=== PATIENT | female | born 1970 | race Caucasian/White ===

== ENCOUNTER 2018-05-25 11:30 | Emergency (ER) | payer MEDICAID ==
--- NOTE | 2018-05-25 13:20 | ED Physician Documentation ---
PD HPI HEENT - Stated complaint Stated Complaint: LT EAR PRESSURE/PX - Chief complaint Chief Complaint: Heent - History obtained from History obtained from: Patient - History of Present Illness Timing - onset: How many days ago (10) Timing - duration: Days (10) Timing - details: Gradual onset, Still present, Waxing and waning Location: Left ear Improves: Medication Associated symptoms: Congestion, Cough Similar symptoms before: Diagnosis (OE) Recently seen: Emergency Dept - Additional information Additional information: 47-year-old female has had some pain in her left ear and a feeling of fullness about 10 days ago when she was seen in an emergency department in [place] where they placed her on some Floxin. She developed some problem with her hearing and a feeling of fullness in her ear and attempted to irrigate her ear yesterday with some hydrogen peroxide and when she tried to get out with a Q- tip she lost her hearing in that ear. 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) HEENT: Tonsil/Adenoidectomy Derm: Skin cancer surgery - Present Medications Home Medications: Ambulatory Orders Medication Instructions Recorded Confirmed [place] 300 mg 05/25/18 Propranolol [Inderal] 20 mg 05/25/18 traZODone [Desyrel] 50 mg 05/25/18 - Allergies Allergies/Adverse Reactions: Allergies Allergy/AdvReac Type Severity Reaction Status Date / Time will Allergy Anaphylaxis Verified 05/25/18 12:08 - Social History Does the pt smoke?: No Smoking Status: Never smoker Does the pt drink ETOH?: Yes Does the pt have substance abuse?: No - Immunizations Immunizations are current?: No Immunizations: TDAP >10years/unknown PD ED PE NORMAL - Vitals Vital signs reviewed: Yes (normal ) - General General: Alert and oriented X 3, No acute distress, Well developed/nourished - HEENT HEENT: Atraumatic, PERRL, EOMI, Moist mucous membranes, Pharynx benign, Other ( There is cerumen occluding the left canal. It appears bleached The right ear is clean. There is no pain to pull on the tragus or push on the pinna. ) - Neck Neck: Supple, no meningeal sign, No bony TTP - Respiratory Respiratory: No respiratory distress - Derm Derm: Normal color, Warm and dry, No rash - Extremities Extremities: No deformity, No edema - Neuro Neuro: No motor deficit, No sensory deficit Eye Opening: Spontaneous Motor: Obeys Commands Verbal: Oriented GCS Score: 15 - Psych Psych: Normal mood, Normal affect Results - Vitals Vitals: Vital Signs - 24 hr 05/25/18 11:41 Temperature 36.3 C L Heart Rate 73 Respiratory 16 Rate Blood Pressure 132/79 H O2 Saturation 99 Oxygen O2 Source Room air Procedures - General procedure General procedure: Cerumen impaction removal: With use of hydrogen peroxide the ear is instilled and allowed to percolate for 30 minutes. Following this the patient is irrigated vigorously with hydrogen peroxide with release of large portions of bleach to cerumen. The patient does get some dizziness and some nausea associated with this which is transient she recovers well and has improved hearing. PD MEDICAL DECISION MAKING - ED course Complexity details: considered differential, d/w patient ED course: 47-year-old female with cerumen impaction in the left ear as her ear irrigated with hydrogen peroxide with resolution of her symptoms. - Sepsis Event Vital Signs: Vital Signs - 24 hr 05/25/18 11:41 Temperature 36.3 C L Heart Rate 73 Respiratory 16 Rate Blood Pressure 132/79 H O2 Saturation 99 Oxygen O2 Source Room air Departure - Departure Disposition: 01 Home, Self Care Clinical Impression: Impacted cerumen of left ear Condition: Stable Instructions: ED Wax Ear Home Removal Follow-Up: [facility] [Provider Group]
[2018-05-25 13:34] VITALS: BP 117/81
== END 2018-05-25 13:32 | disposition home or self-care (01) ==
LOC: ED 11:30
DX: H61.22 Impacted cerumen, left ear (principal)
CPT/HCPCS: 69209; 99282; 99283

== ENCOUNTER 2018-05-26 17:46 | Emergency (ER) | payer MEDICAID ==
[2018-05-26] MEDS ORDERED: HYDROmorphone 2 MG/ML VIAL IVP STA (18:02)
[2018-05-26] MEDS ORDERED: ONDANSETRON 4 MG/2 ML VIAL IVP STA (18:02)
[2018-05-26] MEDS ORDERED: SODIUM CHLORIDE 0.9% 1,000 ML IV ONE (18:02)
--- NOTE | 2018-05-26 18:05 | ED Physician Documentation ---
History of Present Illness - Stated complaint Stated Complaint: HEADACHE/VOMIT - Chief complaint Chief Complaint: General - History obtained from History obtained from: Patient - History of Present Illness Timing: Today (She has a history of migraines at a young age but not severe. She developed left-sided neck pain which was severe a few hours ago which was followed by a severe headache and vomiting And light sensitivity.) Review of Systems Ten Systems: 10 systems reviewed and negative Constitutional: denies: Fever, Chills Nose: denies: Rhinorrhea / runny nose, Congestion Throat: denies: Sore throat GI: reports: Nausea, Vomiting. 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) HEENT: Tonsil/Adenoidectomy Derm: Skin cancer surgery - Present Medications Home Medications: Ambulatory Orders Medication Instructions Recorded Confirmed [place] 300 mg PO DAILY 05/25/18 05/26/18 Propranolol [Inderal] 20 mg PO DAILY 05/25/18 05/26/18 traZODone [Desyrel] 50 mg PO DAILY 05/25/18 05/26/18 SUMAtriptan [Imitrex] 25 mg PO BID PRN #10 tablet 05/26/18 - Allergies Allergies/Adverse Reactions: Allergies Allergy/AdvReac Type Severity Reaction Status Date / Time will Allergy Anaphylaxis Verified 05/26/18 17:56 - Social History Does the pt smoke?: No Smoking Status: Never smoker Does the pt drink ETOH?: Yes Does the pt have substance abuse?: No - Family History Family history: reports: Non contributory - Immunizations Immunizations are current?: No Immunizations: TDAP >10years/unknown PD ED PE NORMAL - Vitals Vital signs reviewed: Yes - General General: Alert and oriented X 3, Other (She is retching and appears profoundly uncomfortable with light sensitivity and sound sensitivity.) - HEENT HEENT: PERRL, EOMI - Neck Neck: Other (She has difficulty with rotation of the neck more so than flexion and extension.) - Cardiac Cardiac: RRR, No murmur - Respiratory Respiratory: No respiratory distress, Clear bilaterally - Abdomen Abdomen: Soft, Non tender - Derm Derm: Normal color, Warm and dry - Extremities Extremities: No deformity, No tenderness to palpate, No edema, No calf tenderness / cord - Neuro Neuro: Alert and oriented X 3 Eye Opening: Spontaneous Motor: Obeys Commands Verbal: Oriented GCS Score: 15 - Psych Psych: Normal mood, Normal affect Results - Vitals Vitals: Vital Signs - 24 hr 05/26/18 05/26/18 05/26/18 17:52 19:15 20:15 Temperature 36.8 C Heart Rate 63 54 L 70 Respiratory 16 18 16 Rate Blood Pressure 132/108 H 158/88 H 129/70 O2 Saturation 99 97 99 Oxygen O2 Source Room air - Labs Labs: Laboratory Tests 05/26/18 05/26/18 05/26/18 18:05 18:05 18:05 WBC 10.3 RBC 4.63 Hgb 11.3 L Hct 35.9 L MCV 77.5 L MCH 24.4 L MCHC 31.5 L RDW 18.7 H Plt Count 317 MPV 8.5 Neut # (Auto) 6.1 Lymph # (Auto) 3.3 [place] # (Auto) 0.5 Eos # (Auto) 0.3 Baso # (Auto) 0.1 Absolute Nucleated RBC 0.00 Nucleated RBC % 0.0 PT 10.9 INR 1.0 Sodium 136 Potassium 3.6 Chloride 104 Carbon Dioxide 23 Anion Gap 9.0 BUN 9 Creatinine 1.2 H Estimated GFR (MDRD) 48 L Glucose 116 H Calcium 9.5 Total Bilirubin 0.5 AST 28 ALT 21 Alkaline Phosphatase 73 Total Protein 8.0 Albumin 4.6 Globulin 3.4 Albumin/Globulin Ratio 1.4 Lipase 27 Last Dose Date Last Dose Time [place] 05/26/18 18:45 WBC RBC Hgb Hct MCV MCH MCHC RDW Plt Count MPV Neut # (Auto) Lymph # (Auto) [place] # (Auto) Eos # (Auto) Baso # (Auto) Absolute Nucleated RBC Nucleated RBC % PT INR Sodium Potassium Chloride Carbon Dioxide Anion Gap BUN Creatinine Estimated GFR (MDRD) Glucose Calcium Total Bilirubin AST ALT Alkaline Phosphatase Total Protein Albumin Globulin Albumin/Globulin Ratio Lipase Last Dose Date UNKNOWN Last Dose Time UNKNOWN [place] 0.52 - [place] (name of study) CTA Head Neck Radiology: EMP read contemporaneously (Degenerative changes in the neck without vascular issues or subarachnoid hemorrhage.) PD MEDICAL DECISION MAKING - ED course ED course: 47-year-old woman with history of migraines presents with a much worse than usual headache that really started in the neck and the pattern was concerning for vertebral dissection and therefore advanced CT imaging was obtained which was negative for same. She improved initially with Dilaudid and Zofran but then the pain recurred and she was treated with Reglan and Benadryl IV. After that she was pain-free and she was given a shot of Decadron to prevent rebound headaches. - Sepsis Event Vital Signs: Vital Signs - 24 hr 05/26/18 05/26/18 05/26/18 17:52 19:15 20:15 Temperature 36.8 C Heart Rate 63 54 L 70 Respiratory 16 18 16 Rate Blood Pressure 132/108 H 158/88 H 129/70 O2 Saturation 99 97 99 Oxygen O2 Source Room air Departure - Departure Disposition: 01 Home, Self Care Clinical Impression: Neck pain Headache Qualifiers: Headache type: tension-type Headache chronicity pattern: acute headache Intractability: not intractable Qualified Code(s): G44.209 - Tension-type headache, unspecified, not intractable Condition: Good Record reviewed to determine appropriate education?: Yes Instructions: ED Cephalgia Unspecified Prescriptions: SUMAtriptan [Imitrex] 25 mg PO BID PRN #10 tablet PRN Reason: Headache Comments: Call your doctor to arrange a follow-up appointment, make the next available appointment. In the interim, return anytime if worse or if new symptoms develop.
[2018-05-26 18:19] LABS: BASOPHILS # (AUTO) 0.1 10^3/uL (0.0-0.1); EOSINOPHILS # (AUTO) 0.3 10^3/uL (0.0-0.7); EOSINOPHILS % (AUTO) 3.2 %; HGB - HEMOGLOBIN 11.3 g/dL (12.0-16.0); LYMPHOCYTES # (AUTO) 3.3 10^3/uL (1.5-3.5); LYMPHOCYTES % (AUTO) 31.6 %; MEAN CORPUSCULAR HEMOGLOBIN 24.4 pg (27.0-31.0); MEAN CORPUSCULAR HGB CONC 31.5 g/dL (32.0-36.0); MEAN CORPUSCULAR VOLUME 77.5 fL (81.0-99.0); MEAN PLATELET VOLUME 8.5 fL (7.9-10.8); MONOCYTES # (AUTO) 0.5 10^3/uL (0.0-1.0); MONOCYTES % (AUTO) 4.8 %; NEUTROPHILS # (AUTO) 6.1 10^3/uL (1.5-6.6); NEUTROPHILS % (AUTO) 59.4 %; PLT - PLATELET COUNT 317 10^3/uL (130-450); RED BLOOD COUNT 4.63 10^6/uL (4.20-5.40); RED CELL DISTRIBUTION WIDTH 18.7 % (12.0-15.0); WHITE BLOOD COUNT 10.3 x10^3/uL (4.8-10.8)
[2018-05-26] MEDS ORDERED: IOPAMIDOL-300 100 ML VIAL ONE (18:19)
[2018-05-26 18:25] LABS: PT - PROTHROMBIN TIME 10.9 secs (9.9-12.6)
[2018-05-26 18:31] LABS: ALBUMIN 4.6 g/dL (3.2-5.5); ALBUMIN/GLOBULIN RATIO 1.4 (1.0-2.2); BILIRUBIN,TOTAL 0.5 mg/dL (0.2-1.0); CALCIUM 9.5 mg/dL (8.5-10.3); CREATININE 1.2 mg/dL (0.4-1.0)
[2018-05-26] MEDS ORDERED: IOPAMIDOL-300 100 ML VIAL IVP ONE (18:47)
[2018-05-26 19:10] LABS: LITHIUM 0.52 mmol/L
[2018-05-26] MEDS ORDERED: diphenhydrAMINE INJ 50 MG/ML VIAL IVP STA (19:33)
[2018-05-26] MEDS ORDERED: METOCLOPRAMIDE 10 MG/2 ML VIAL IVP STA (19:33)
--- NOTE | 2018-05-26 19:34 | CT Report ---
Procedure Date: 05/26/2018 Accession Number: [id number] / [id number] Procedure: CT - Head Angio CPT Code: FULL RESULT: EXAM: CT ANGIOGRAM HEAD AND NECK. CT SCAN HEAD WITHOUT AND WITH CONTRAST. EXAM DATE:05/26/2018 06:41 PM. CLINICAL HISTORY:Left neck pain and worst headache of life COMPARISON:CT head without contrast 05/22/2018. TECHNIQUE: Routine axial helical CTA imaging was performed from the aortic arch through the [place] of [place]. Routine axial CT imaging of the head was performed prior to and following contrast administration. Reconstructions: Routine multiplanar 3D MIP reconstructions. IV contrast: 100 cc Isovue-300. NASCET Criteria are used for stenosis measurements. In accordance with CT protocol optimization, one or more of the following dose reduction techniques were utilized for this exam: automated exposure control, adjustment of mA and/or KV based on patient size, or use of iterative reconstructive technique. FINDINGS: Non Contrast Head: There is no mass, mass effect, midline shift or abnormal extraaxial fluid collection. Size and configuration of the ventricles appear normal. There is no intracranial hemorrhage. Hay white matter differentiation is maintained. Brain stem and cerebellum appear unremarkable. Calvarium and skull base appear intact and normal. Orbits and extracranial soft tissue appear unremarkable. Post contrast CT Head: No abnormal enhancement. Hay white matter differentiation appear preserved. Dural venous sinus and deep cerebral veins appear normal. CTA HEAD: Anterior Circulation: The internal carotid arteries (ICA), middle cerebral arteries (MCA), and anterior cerebral arteries ([place]) are patent bilaterally. The anterior communicating artery (A-COM) appears patent. No aneurysms, stenoses, or anatomic anomalies evident. Posterior Circulation: The superior vertebral artery, basilar, and posterior cerebral arteries (STARCHER AND TENTER RANGE FEEDER) are patent. No aneurysms, stenoses, or anomalies evident. The posterior communicating arteries (P-COM) are patent bilaterally. There is an infundibulum for the left posterior communicating artery. CTA NECK: Right Carotid: The common carotid, internal carotid, and external carotid arteries are widely patent. No dissection, significant atherosclerotic plaque, or calcification identified. No significant stenosis by NASCET criteria. Left Carotid: The common carotid, internal carotid, and external carotid arteries are widely patent. No dissection, significant atherosclerotic plaque, or calcification identified. No significant stenosis by NASCET criteria. Vertebrals: The vertebrobasilar system shows no stenosis, dissection, aneurysm, or significant atherosclerotic disease. Aortic arch and pulmonary artery appear normal. Other: Mild degenerative changes of the cervical spine with minimal anterolisthesis at C3-C4, and mild disk height loss at C5-C6 and C6-C7. No suspicious lytic, or sclerotic osseous lesions. IMPRESSION: CT Scan Head: Normal CT scan of the head. CT Angiogram Neck: Normal CTA of the extracranial circulation. No significant atherosclerotic change or stenosis. No dissection. CT Angiogram Head: Normal CTA of the head. No aneurysm. No significant stenosis. RADIA
[2018-05-26 20:17] VITALS: BP 129/70
[2018-05-26] MEDS ORDERED: DEXAMETHASONE 10 MG/ML VIAL IVP STA (20:17)
== END 2018-05-26 20:29 | disposition home or self-care (01) ==
LOC: ED 17:46
DX: M54.2 Cervicalgia (principal); G44.209 Tension-type headache, unspecified, not intractable; G43.909 Migraine, unspecified, not intractable, without status migrainosus; M50.31 Other cervical disc degeneration, high cervical region; M43.12 Spondylolisthesis, cervical region
CPT/HCPCS: 36415; 70496; 70498; 80053; 80178; 83690; 85025; 85610; 96361; 96374; 96375; 99284; J1170; J1200; J2765; Q9967

== ENCOUNTER 2018-06-05 07:31 | Emergency (ER) | payer MEDICAID ==
[2018-06-05 07:43] VITALS: BP 132/93
--- NOTE | 2018-06-05 08:08 | ED Physician Documentation ---
PD HPI HEENT - Stated complaint Stated Complaint: EAR PX - Chief complaint Chief Complaint: Heent - History obtained from History obtained from: Patient - History of Present Illness Timing - onset: How many days ago (5) Timing - duration: Days (2) Timing - details: Gradual onset, Still present Location: Left ear Improves: Medication Associated symptoms: Congestion, Rhinorrhea Similar symptoms before: Diagnosis (OE and cerumen impaction) Recently seen: Emergency Dept - Additional information Additional information: 47-year-old female is developed an otitis externa in the left ear earlier this summer was treated in [place] she came to the emergency department here was treated for cerumen impaction the following day she developed severe migraine. She is coming in here today with pain in her left ear drainage that is foul- smelling and a cough. Review of Systems Constitutional: denies: Fever Eyes: denies: Decreased vision Ears: reports: Loss of hearing, Ear pain, Drainage/discharge Nose: reports: Congestion Throat: denies: Sore throat Cardiac: denies: Chest pain / pressure, Palpitations Respiratory: reports: Cough. 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) HEENT: Tonsil/Adenoidectomy Derm: Skin cancer surgery - Present Medications Home Medications: Ambulatory Orders Medication Instructions Recorded Confirmed [employer] 300 mg PO DAILY 05/25/18 05/26/18 Propranolol [Inderal] 20 mg PO DAILY 05/25/18 05/26/18 traZODone [Desyrel] 50 mg PO DAILY 05/25/18 05/26/18 SUMAtriptan [Imitrex] 25 mg PO BID PRN #10 tablet 05/26/18 Azithromycin [Zithromax] 250 mg PO DAILY #6 tablet 06/05/18 Fluticasone [Flonase] 1 sprays LEROY BID #1 bottle 06/05/18 Neomycin/Polymyx/Hc Otic Drops 4 drops LEFTEAR TID #1 bottle 06/05/18 [Cortisporin Ear Susp] - Allergies Allergies/Adverse Reactions: Allergies Allergy/AdvReac Type Severity Reaction Status Date / Time will Allergy Anaphylaxis Verified 05/26/18 17:56 - Social History Does the pt smoke?: No Smoking Status: Never smoker Does the pt drink ETOH?: Yes Does the pt have substance abuse?: No - Immunizations Immunizations are current?: No Immunizations: TDAP >10years/unknown - POLST Patient has POLST: No PD ED PE NORMAL - Vitals Vital signs reviewed: Yes (hypertensive diastolic mild) - HEENT HEENT: Atraumatic, PERRL, EOMI, Other (The right TM is erythematous along the umbo with flattened TM. The left is no visible secondary to the drainage. ) - Neck Neck: Supple, no meningeal sign, No bony TTP, No adenopathy - Cardiac Cardiac: RRR, No murmur - Respiratory Respiratory: No respiratory distress, Clear bilaterally - Abdomen Abdomen: Soft, Non tender - Back Back: No CVA TTP, No spinal TTP - Derm Derm: Normal color, Warm and dry, No rash - Extremities Extremities: No deformity, No edema - Neuro Neuro: Alert and oriented X 3, No motor deficit, No sensory deficit, Normal speech Eye Opening: Spontaneous Motor: Obeys Commands Verbal: Oriented GCS Score: 15 - Psych Psych: Normal mood, Normal affect Results - Vitals Vitals: Vital Signs - 24 hr 06/05/18 07:41 Temperature 36.6 C Heart Rate 61 Respiratory 12 Rate Blood Pressure 132/93 H O2 Saturation 98 Oxygen O2 Source Room air PD MEDICAL DECISION MAKING - ED course Complexity details: reviewed old records, reviewed results, re-evaluated patient , considered differential, d/w patient ED course: 47-year-old female with history of otitis externa recently appears to have recurrence of her symptoms she also has a cough and evidence of otitis media on exam. She will be treated for both. - Sepsis Event Vital Signs: Vital Signs - 24 hr 06/05/18 07:41 Temperature 36.6 C Heart Rate 61 Respiratory 12 Rate Blood Pressure 132/93 H O2 Saturation 98 Oxygen O2 Source Room air Departure - Departure Disposition: 01 Home, Self Care Clinical Impression: Otitis media Qualifiers: Otitis media type: suppurative Chronicity: acute Laterality: bilateral Recurrence: not specified as recurrent Spontaneous tympanic membrane rupture: without spontaneous rupture Qualified Code(s): H66.003 - Acute suppurative otitis media without spontaneous rupture of ear drum, bilateral Otitis externa Qualifiers: Otitis externa type: unspecified type Chronicity: acute Laterality: left Qualified Code(s): H60.502 - Unspecified acute noninfective otitis externa, left ear Condition: Stable Instructions: ED Otitis Media Acute Adult, ED Otitis Externa Follow-Up: [facility] [place] [Provider Group] Prescriptions: Azithromycin [Zithromax] 250 mg PO DAILY #6 tablet Fluticasone [Flonase] 1 sprays LEROY BID #1 bottle Neomycin/Polymyx/Hc Otic Drops [Cortisporin Ear Susp] 4 drops LEFTEAR TID #1 bottle
== END 2018-06-05 08:41 | disposition home or self-care (01) ==
LOC: ED 07:31
DX: H66.003 Acute suppurative otitis media without spontaneous rupture of ear drum, bilateral (principal); H60.502 Unspecified acute noninfective otitis externa, left ear
CPT/HCPCS: 99283

== ENCOUNTER 2018-07-24 12:07 | Emergency (ER) | payer MEDICAID ==
[2018-07-24 12:14] VITALS: BP 133/90
--- NOTE | 2018-07-24 13:47 | ED Physician Documentation ---
PD HPI OPHTHO - Stated complaint Stated Complaint: R EAR PAIN - Chief complaint Chief Complaint: Heent - History obtained from History obtained from: Patient - History of Present Illness Timing - onset: Other (R ear pain and drainage s/p jacuzzi. Recent L om- better. ) Review of Systems Constitutional: denies: Fever, Chills Ears: reports: Loss of hearing, Ear pain, Drainage/discharge Nose: reports: Rhinorrhea / runny nose. 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) HEENT: Tonsil/Adenoidectomy Derm: Skin cancer surgery - Present Medications Home Medications: Ambulatory Orders Medication Instructions Recorded Confirmed [place] 300 mg PO DAILY 05/25/18 05/26/18 Propranolol [Inderal] 20 mg PO DAILY 05/25/18 05/26/18 traZODone [Desyrel] 50 mg PO DAILY 05/25/18 05/26/18 Fluticasone [Flonase] 1 sprays LEROY BID #1 bottle 06/05/18 Fluticasone [Flonase] 1 sprays LEROY BID #1 bottle 07/24/18 Neomycin/Polymyx/Hc Otic Drops 4 drops OT TID #1 bottle 07/24/18 [Cortisporin Ear Susp] - Allergies Allergies/Adverse Reactions: Allergies Allergy/AdvReac Type Severity Reaction Status Date / Time will Allergy Anaphylaxis Verified 07/24/18 12:14 - Social History Does the pt smoke?: No Smoking Status: Never smoker Does the pt drink ETOH?: Yes Does the pt have substance abuse?: No - Immunizations Immunizations are current?: No Immunizations: TDAP >10years/unknown - POLST Patient has POLST: No PD ED PE NORMAL - Vitals Vital signs reviewed: Yes - General General: Alert and oriented X 3, No acute distress - HEENT HEENT: Pharynx benign, Other (She has a pretty bad case of right external otitis with opacification but not bulging of the TM. There is very mild left external otitis.) - Neck Neck: Supple, no meningeal sign, No bony TTP - Neuro Neuro: Alert and oriented X 3, Normal speech Results - Vitals Vitals: Vital Signs - 24 hr 07/24/18 12:10 Temperature 36.1 C L Heart Rate 63 Respiratory 16 Rate Blood Pressure 133/90 H O2 Saturation 99 Oxygen O2 Source Room air PD MEDICAL DECISION MAKING - Sepsis Event Vital Signs: Vital Signs - 24 hr 07/24/18 12:10 Temperature 36.1 C L Heart Rate 63 Respiratory 16 Rate Blood Pressure 133/90 H O2 Saturation 99 Oxygen O2 Source Room air Departure - Departure Disposition: 01 Home, Self Care Clinical Impression: External otitis Qualifiers: Otitis externa type: swimmer's ear Chronicity: acute Laterality: right Qualified Code(s): H60.331 - Swimmer's ear, right ear Condition: Good Record reviewed to determine appropriate education?: Yes Instructions: ED Otitis Externa Follow-Up: [facility] [Provider Group] Prescriptions: Fluticasone [Flonase] 1 sprays LEROY BID #1 bottle Neomycin/Polymyx/Hc Otic Drops [Cortisporin Ear Susp] 4 drops OT TID #1 bottle Comments: Your blood pressure was elevated today on check into the emergency department. This does not mean that you have hypertension, it is a common phenomenon to come to the emergency department and have elevated blood pressure. I recommend that you see your primary care physician within the week to have it rechecked when you are feeling better.
== END 2018-07-24 13:58 | disposition home or self-care (01) ==
LOC: ED 12:07
DX: H60.331 Swimmer's ear, right ear (principal)
CPT/HCPCS: 99283

== ENCOUNTER 2018-11-02 18:02 | Emergency (ER) | payer MEDICAID ==
[2018-11-02 18:09] VITALS: BP 150/99
--- NOTE | 2018-11-02 18:20 | ED Physician Documentation ---
PD HPI ABD PAIN - Stated complaint Stated Complaint: FEMALE - Chief complaint Chief Complaint: Abd Pain - History obtained from History obtained from: Patient - History of Present Illness Timing - onset: Other (She had intercourse with a new partner about a week ago. Immediately thereafter she started to get foul-smelling discharge and pelvic pain.) Review of Systems Constitutional: denies: Fever, Chills GI: reports: Abdominal Pain. 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) HEENT: Tonsil/Adenoidectomy Derm: Skin cancer surgery - Present Medications Home Medications: Ambulatory Orders Medication Instructions Recorded Confirmed [place] 300 mg PO DAILY 05/25/18 05/26/18 Propranolol [Inderal] 20 mg PO DAILY 05/25/18 05/26/18 traZODone [Desyrel] 50 mg PO DAILY 05/25/18 05/26/18 Fluticasone [Flonase] 1 sprays LEROY BID #1 bottle 07/24/18 - Allergies Allergies/Adverse Reactions: Allergies Allergy/AdvReac Type Severity Reaction Status Date / Time will Allergy Anaphylaxis Verified 11/02/18 18:09 - Social History Does the pt smoke?: No Smoking Status: Never smoker Does the pt drink ETOH?: Yes Does the pt have substance abuse?: No - Immunizations Immunizations are current?: No Immunizations: TDAP >10years/unknown - POLST Patient has POLST: No PD ED PE NORMAL - Vitals Vital signs reviewed: Yes - General General: Alert and oriented X 3, No acute distress - Abdomen Abdomen: Soft, Non tender - Female Female : Director Of Digital Platforms present (Elida Mccoy RN), Other (On her menses, swabs taken. No significant CMT or bimanual tenderness.) - Neuro Neuro: Alert and oriented X 3, Normal speech Results - Vitals Vitals: Vital Signs - 24 hr 11/02/18 18:07 Temperature 36.8 C Heart Rate 70 Respiratory 20 Rate Blood Pressure 150/99 H O2 Saturation 99 Oxygen O2 Source Room air - Labs Labs: Microbiology 11/02/18 19:10 Wet Prep - Final Cervix Laboratory Tests 12/13/18 19:10 Urine Color YELLOW Urine Clarity CLEAR Urine pH 6.0 Ur Specific [place] 1.025 Urine Protein NEGATIVE Urine Glucose (UA) NEGATIVE Urine Ketones NEGATIVE Urine Occult Blood LARGE H Urine Nitrite NEGATIVE Urine Bilirubin NEGATIVE Urine Urobilinogen 0.2 (NORMAL) Ur Leukocyte Esterase NEGATIVE Ur Microscopic Review INDICATED Urine Culture Comments Not Reportable Urine HCG, Qual NEGATIVE Departure - Departure Disposition: Home, Self Care Clinical Impression: Pelvic pain, Concern about STD in female without diagnosis Condition: Good Record reviewed to determine appropriate education?: Yes Instructions: ED Pelvic Pain UKO Comments: If gonorrhea or chlamydia tests are positive we will call you but she should be completely treated at that point with the treatments given tonight. Return for new or worsening symptoms. Your blood pressure was elevated today on check into the emergency department. This does not mean that you have hypertension, it is a common phenomenon to come to the emergency department and have elevated blood pressure. I recommend that you see your primary care physician within the week to have it rechecked when you are feeling better.
[2018-11-02 19:31] LABS: BILIRUBIN,URINE NEGATIVE (NEGATIVE); GLUCOSE, URINE (UA) NEGATIVE (NEGATIVE); KETONES,URINE (UA) NEGATIVE (NEGATIVE); LEUKOCYTE ESTERASE, URINE NEGATIVE (NEGATIVE); NITRITE,URINE NEGATIVE (NEGATIVE); OCCULT BLOOD,URINE LARGE (NEGATIVE); PROTEIN,URINE NEGATIVE (NEGATIVE); UROBILINOGEN,URINE 0.2 (NORMAL) E.U./dL (NORMAL)
[2018-11-02 19:34] LABS: CLARITY,URINE CLEAR (CLEAR); HCG UR QUAL NEGATIVE
[2018-11-02] MEDS ORDERED: LIDOCAINE 1% 2 ML VIAL SUBQ ONE (19:46)
[2018-11-02] MEDS ORDERED: AZITHROMYCIN 250 MG TABLET PO STA (19:46)
[2018-11-02] MEDS ORDERED: cefTRIAXone 250 MG VIAL IM STA (19:46)
[2018-11-02 19:56] LABS: BACTERIA,URINE None Seen /HPF (None Seen); SQUAMOUS EPITHELIAL CELL,UR RARE Squamous (<= Few)
== END 2018-11-02 20:20 | disposition home or self-care (01) ==
LOC: ED 18:02
DX: R10.2 Pelvic and perineal pain (principal); R03.0 Elevated blood-pressure reading, without diagnosis of hypertension
CPT/HCPCS: 81001; 81025; 87210; 87491; 87591; 96372; 99283; A9270; 81003; 87086

== ENCOUNTER 2019-02-10 07:29 | Emergency (ER) | payer MEDICAID ==
[2019-02-10 07:41] VITALS: BP 154/101
[2019-02-10 08:54] LABS: LITHIUM 0.61 mmol/L
--- NOTE | 2019-02-10 09:27 | ED Physician Documentation ---
History of Present Illness - Stated complaint Stated Complaint: EAR PX/HARD TO HEAR - Chief complaint Chief Complaint: General - Additonal information Additional information: 48-year-old female presents the emergency department with a fullness in her right ear. The patient reports getting over a nasal congestion and URI symptoms. Now the patient has fullness in that ear. No other associated symptoms. The patient also request having her lithium level checked. Symptoms are described as mild. 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) HEENT: Tonsil/Adenoidectomy Derm: Skin cancer surgery - Present Medications Home Medications: Ambulatory Orders Medication Instructions Recorded Confirmed [place] 300 mg PO DAILY 05/25/18 05/26/18 Propranolol [Inderal] 20 mg PO DAILY 05/25/18 05/26/18 traZODone [Desyrel] 50 mg PO DAILY 05/25/18 05/26/18 Fluticasone [Flonase] 1 sprays LEROY BID #1 bottle 07/24/18 hydrOXYzine PAMOATE [Vistaril] 25 mg PO Q6H PRN #30 capsule 02/10/19 - Allergies Allergies/Adverse Reactions: Allergies Allergy/AdvReac Type Severity Reaction Status Date / Time will Allergy Anaphylaxis Verified 02/10/19 07:41 - Social History Does the pt smoke?: No Smoking Status: Never smoker Does the pt drink ETOH?: Yes Does the pt have substance abuse?: No - Immunizations Immunizations are current?: No Immunizations: TDAP >10years/unknown - POLST Patient has POLST: No PD ED PE NORMAL - General General: Alert and oriented X 3, No acute distress - HEENT HEENT: Atraumatic, PERRL, EOMI, Pharynx benign, Other (The left ear is unremarkable. The right ear has some mild effusion, there is no other erythematous changes to the tympanic membrane, no bulging of the tympanic membrane. There is no acute signs of infection of the middle ear or external ear. This most likely is a resolving process of the recent URI) - Cardiac Cardiac: RRR, Strong equal pulses - Derm Derm: Normal color, Other (I do not appreciate a rash on the face at this time) - Extremities Extremities: No deformity - Neuro Neuro: Alert and oriented X 3, Normal speech - Psych Psych: Normal mood Results - Vitals Vitals: Vital Signs - 24 hr 02/10/19 07:37 Temperature 3.8 C L Heart Rate 86 Respiratory 18 Rate Blood Pressure 154/101 H O2 Saturation 99 Oxygen O2 Source Room air - Labs Labs: Laboratory Tests 02/10/19 08:37 Last Dose Date UNK Last Dose Time UNK [place] 0.61 PD MEDICAL DECISION MAKING - ED course ED course: No evidence of any acute bacterial infection of the ear, her symptoms are most likely from the effusion that most likely is in the process of resolving. The patient appears appropriate for discharge and ongoing outpatient management. The patient will return to the emergency department for any worsening or concerns Departure - Departure Disposition: 01 Home, Self Care Clinical Impression: Fluid collection of middle ear Condition: Good Instructions: ED Ear Infec Wait See Abx Tx Follow-Up: [facility] [Provider Group] - Within 1 week Prescriptions: hydrOXYzine PAMOATE [Vistaril] 25 mg PO Q6H PRN #30 capsule PRN Reason: Cold Symptons
== END 2019-02-10 09:55 | disposition home or self-care (01) ==
LOC: ED 07:29
DX: H74.8X3 Other specified disorders of middle ear and mastoid, bilateral (principal)
CPT/HCPCS: 36415; 80178; 99283

== ENCOUNTER 2019-05-18 21:22 | Emergency (ER) | payer MEDICAID ==
--- NOTE | 2019-05-18 21:36 | ED Physician Documentation ---
PD HPI LOWER EXT INJURY - Stated complaint Stated Complaint: LT TOE INJURY - Chief complaint Chief Complaint: Ext Problem - History obtained from History obtained from: Patient - History of Present Illness PD HPI LOW EXT INJURY LOCATION: Left (Last night she was transferring a bottle of wine into her wine refrigerator. 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, 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) HEENT: Tonsil/Adenoidectomy Derm: Skin cancer surgery - Present Medications Home Medications: Ambulatory Orders Medication Instructions Recorded Confirmed [place] 300 mg PO DAILY 05/25/18 05/26/18 Propranolol [Inderal] 20 mg PO DAILY 05/25/18 05/26/18 traZODone [Desyrel] 50 mg PO DAILY 05/25/18 05/26/18 Fluticasone [Flonase] 1 sprays LEROY BID #1 bottle 07/24/18 hydrOXYzine PAMOATE [Vistaril] 25 mg PO Q6H PRN #30 capsule 02/10/19 Ibuprofen [Motrin] 800 mg PO Q8H PRN #30 tablet 05/18/19 - Allergies Allergies/Adverse Reactions: Allergies Allergy/AdvReac Type Severity Reaction Status Date / Time will Allergy Anaphylaxis Verified 02/10/19 07:41 - Social History Does the pt smoke?: No Smoking Status: Never smoker Does the pt drink ETOH?: Yes Does the pt have substance abuse?: No - Immunizations Immunizations are current?: No Immunizations: TDAP >10years/unknown - POLST Patient has POLST: No PD ED PE NORMAL - Vitals Vital signs reviewed: Yes - General General: Alert and oriented X 3, Other (Anxious and histrionic) - Extremities Extremities: Other (The left great toe has a subungual hematoma, hard to assess the extent because of nail kinyarwanda. Quite tender at the tip. Full range of motion.) Results - Vitals Vitals: Vital Signs - 24 hr 05/18/19 05/18/19 21:28 22:11 Temperature 36.9 C Heart Rate 71 67 Respiratory 18 16 Rate Blood Pressure 145/85 H 136/75 H O2 Saturation 98 96 Oxygen O2 Source Room air PD MEDICAL DECISION MAKING - ED course ED course: This is a histrionic 48-year-old woman with a left great toe injury. We attempted a digital block with lidocaine during initial evaluation which she did not tolerate because of anxiety and histrionic kicking. She was administered some IM Versed, subsequent to that we are able to trephinate the toenail with resolution of subungual hematoma and significant improvement in her pain. Departure - Departure Disposition: 01 Home, Self Care Clinical Impression: Crushing injury of toe of left foot Qualifiers: Encounter type: initial encounter Qualified Code(s): S97.102A - Crushing injury of unspecified left toe(s), initial encounter Subungual hematoma of great toe of left foot Qualifiers: Encounter type: initial encounter Qualified Code(s): S90.212A - Contusion of left great toe with damage to nail, initial encounter Condition: Good Record reviewed to determine appropriate education?: Yes Health Concerns: Left great toe injury Plan of Treatment: Subungual hematoma was trephinated and counseled on wound care. She may or may not lose the nail, hopefully not. Care Goals: Improvement of pain Assessment: as above Instructions: ED Crush Injury Foot Toe No Fx Prescriptions: Ibuprofen [Motrin] 800 mg PO Q8H PRN #30 tablet PRN Reason: PAIN &/OR FEVER Comments: Return as needed or if you feel like the toenail needs to come off. Follow-up with your doctor in a week.
[2019-05-18] MEDS ORDERED: MIDAZOLAM 2 MG/2 ML VIAL IM STA (21:52)
--- NOTE | 2019-05-18 22:16 | XRAY Report ---
Reason: toe inj Procedure Date: 05/18/2019 Accession Number: [id number] / [id number] Procedure: XR - Toe(s) LT CPT Code: FULL RESULT: EXAM: LEFT TOE RADIOGRAPHY EXAM DATE: 05/18/2019 09:48 PM. CLINICAL HISTORY: Toe inj. COMPARISON: None. TECHNIQUE: 3 views. FINDINGS: Bones: Normal. No fracture or bone lesion. Joints: Normal. No subluxations. Soft Tissues: Normal. No soft tissue swelling. IMPRESSION: No acute displaced fracture or malalignment. Unremarkable soft tissues. RADIA
[2019-05-18 22:28] VITALS: BP 142/87
== END 2019-05-18 22:35 | disposition home or self-care (01) ==
LOC: ED 21:22
DX: S90.212A Contusion of left great toe with damage to nail, initial encounter (principal); S97.112A Crushing injury of left great toe, initial encounter; W20.8XXA Other cause of strike by thrown, projected or falling object, initial encounter; Y93.89 Activity, other specified; F41.9 Anxiety disorder, unspecified
CPT/HCPCS: 11740; 73660; 99283

== ENCOUNTER 2019-07-06 06:14 | Emergency (ER) | payer MEDICAID ==
--- NOTE | 2019-07-06 06:33 | ED Physician Documentation ---
History of Present Illness - Stated complaint Stated Complaint: HEAVINESS IN CHEST, CONGESTION,FEVER - Chief complaint Chief Complaint: Cardiac - Additonal information Additional information: This is a 48-year-old female with a history of hypertension, bipolar disorder, who presents with persistent cough and chest tightness. Patient had a cough for 2-1/2 weeks, which was diagnosed as bronchitis by her neighbor who is a herbalist. She is been treating this with eucalyptus and baths. Her cough has become less frequent, but has persisted. She also has some discomfort in her chest which is burning and aching and located in her central chest and present for the last several days. She denies abdominal pain, hemoptysis, leg swelling, history of blood clots, or personal history of heart problems. She has never had a stress test or catheterization. Her mother does have a history of coronary artery disease. Patient smokes marijuana but not cigarettes. Review of Systems Constitutional: reports: Myalgias Nose: reports: Congestion Throat: denies: Oral lesions / sores Cardiac: reports: Chest pain / pressure Respiratory: reports: Cough GI: denies: Vomiting Skin: denies: Rash Musculoskeletal: reports: Back pain Neurologic: reports: Generalized weakness Endocrine: reports: Other (Negative for diabetes) Immunocompromised: denies: Immunocompromised PD PAST MEDICAL HISTORY - Past Medical History Respiratory: Other Neuro: Migraines Psych: Depression, Anxiety, Bipolar disorder - Past Surgical History Past Surgical History: Yes General: Colonoscopy Ortho: Knee replacement, ACL reconstruction, 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, 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) HEENT: Tonsil/Adenoidectomy Derm: Skin cancer surgery - Present Medications Home Medications: Ambulatory Orders Medication Instructions Recorded Confirmed [place] 300 mg PO BID 05/25/18 07/06/19 Propranolol [Inderal] 20 mg PO DAILY 05/25/18 07/06/19 traZODone [Desyrel] 50 mg PO DAILY 05/25/18 07/06/19 Fluticasone [Flonase] 1 sprays LEROY BID #1 bottle 07/24/18 07/06/19 Albuterol Sulf [Ventolin Hfa 1 - 2 puffs INH Q4HR PRN #1 inhaler 07/06/19 Inhaler] Benzonatate [Tessalon Perle] 100 - 200 mg PO TID PRN #30 capsule 07/06/19 - Allergies Allergies/Adverse Reactions: Allergies Allergy/AdvReac Type Severity Reaction Status Date / Time will Allergy Anaphylaxis Verified 07/06/19 06:56 - Social History Does the pt smoke?: No Smoking Status: Never smoker Does the pt drink ETOH?: Yes Does the pt have substance abuse?: No - Immunizations Immunizations are current?: No Immunizations: TDAP >10years/unknown - POLST Patient has POLST: No PD ED PE NORMAL - Vitals Vital signs reviewed: Yes - General General: Alert and oriented X 3, No acute distress - HEENT HEENT: PERRL - Neck Neck: Supple, no meningeal sign - Cardiac Cardiac: RRR - Respiratory Respiratory: No respiratory distress, Clear bilaterally - Abdomen Abdomen: Soft, Non tender, Non distended - Derm Derm: Warm and dry - Extremities Extremities: No deformity - Neuro Neuro: Alert and oriented X 3 - Psych Psych: Normal mood, Normal affect Results - Vitals Vitals: Vital Signs - 24 hr 07/06/19 07/06/19 06:15 06:55 Temperature 36.2 C L Heart Rate 64 59 L Respiratory 24 21 Rate Blood Pressure 125/91 H 132/67 H O2 Saturation 100 97 Oxygen O2 Source Room air - EKG (time done) 6:24 Other comments: Other comments (Rate 64, rhythm sinus, borderline left axis deviation. There is a nonspecific intraventricular conduction delay. There is no significant ST elevation or depression, no abnormal T wave inversions. QTc 435) - Labs Labs: Laboratory Tests 07/06/19 07/06/19 07/06/19 06:33 06:33 06:33 WBC 8.6 RBC 4.34 Hgb 10.6 L Hct 35.0 L MCV 80.6 L MCH 24.4 L MCHC 30.3 L RDW 16.8 H Plt Count 307 MPV 10.8 Neut # (Auto) 4.8 Lymph # (Auto) 2.7 [place] # (Auto) 0.5 Eos # (Auto) 0.5 Baso # (Auto) 0.1 Absolute Nucleated RBC 0.00 Nucleated RBC % 0.0 Sodium 138 Potassium 3.9 Chloride 109 Carbon Dioxide 20 L Anion Gap 9.0 BUN 10 Creatinine 1.1 H Estimated GFR (MDRD) 53 L Glucose 102 H Calcium 9.2 Total Bilirubin 0.6 AST 20 ALT 15 Alkaline Phosphatase 61 Troponin I High Sens < 2.3 L Total Protein 7.2 Albumin 4.1 Globulin 3.1 Albumin/Globulin Ratio 1.3 Lipase 31 - Rads (name of study) CXR Radiology: Prelim report reviewed (No acute cardiopulmonary abnormality) PD MEDICAL DECISION MAKING - ED course Complexity details: considered differential (Bronchitis, pneumonia, effusion, pneumothorax, ACS, pulmonary embolism) ED course: On initial exam patient is non-toxic appearing. She was placed on a case monitor, IV was inserted, labs were drawn. EKG showed no convincing signs of dysrhythmia or ischemia. Labs are unremarkable, including high-sensitivity troponin. A single troponin is sufficient given patient has had ongoing chest pain for >6 hours. CXR shows no acute cardiopulmonary abnormality. PE was considered however patient is <50, has no signs of DVT, recent immobilization, history of blood clots, history of cancer, hemoptysis, hypoxia, or tachycardia, making this very unlikely. Her history of a viral illness makes post-viral cough much more likely. Patients HEART score is 1, correlating to a low risk of major adverse cardiac event. I discussed the results of our studies, that we do not see an emergent cause of their chest pain today, but that patient should follow-up closely with her primary care provider. I also discussed return precautions including new or worsening chest pain, shortness of breath, syncope, hemoptysis, or any other concerning symptoms. I prescribed Tessalon Perles for her cough, and on her request also prescribed an albuterol inhaler as she states that she has had some occasional wheezing, though she does not clearly hold a diagnosis of asthma. Her lungs are clear this time, and she is very well appearing. Patient agreed with this plan and was discharged home. Departure - Departure Disposition: 01 Home, Self Care Clinical Impression: Cough, Chest discomfort Condition: Good Instructions: ED Chest Pain Atypical Unkn Cause Prescriptions: Albuterol Sulf [Ventolin Hfa Inhaler] 1 - 2 puffs INH Q4HR PRN #1 inhaler PRN Reason: Shortness Of Air/Wheezing Benzonatate [Tessalon Perle] 100 - 200 mg PO TID PRN #30 capsule PRN Reason: Cough Comments: You were seen today for some chest discomfort as well as a persistent cough. We do not see signs of pneumonia on your x-ray, and your lab results are reassuring. You do have an anemia, please follow-up with your primary care provider on this. Return to the emergency department if you develop new or worsening symptoms, such as severe shortness of breath, new or worsening chest pain, blood in your sputum. Follow up with your PCP.
[2019-07-06 06:50] LABS: BASOPHILS # (AUTO) 0.1 10^3/uL (0.0-0.1); BASOPHILS % (AUTO) 1.1 %; EOSINOPHILS # (AUTO) 0.5 10^3/uL (0.0-0.7); EOSINOPHILS % (AUTO) 5.3 %; HGB - HEMOGLOBIN 10.6 g/dL (12.0-16.0); LYMPHOCYTES # (AUTO) 2.7 10^3/uL (1.5-3.5); MEAN CORPUSCULAR HEMOGLOBIN 24.4 pg (27.0-31.0); MEAN CORPUSCULAR HGB CONC 30.3 g/dL (32.0-36.0); MEAN CORPUSCULAR VOLUME 80.6 fL (81.0-99.0); MEAN PLATELET VOLUME 10.8 fL (7.9-10.8); MONOCYTES # (AUTO) 0.5 10^3/uL (0.0-1.0); MONOCYTES % (AUTO) 6.1 %; NEUTROPHILS # (AUTO) 4.8 10^3/uL (1.5-6.6); NEUTROPHILS % (AUTO) 55.9 %; PLT - PLATELET COUNT 307 10^3/uL (130-450); RED BLOOD COUNT 4.34 10^6/uL (4.20-5.40); RED CELL DISTRIBUTION WIDTH 16.8 % (12.0-15.0); WHITE BLOOD COUNT 8.6 x10^3/uL (4.8-10.8)
[2019-07-06 06:56] VITALS: BP 132/67
[2019-07-06 07:00] LABS: ALBUMIN 4.1 g/dL (3.2-5.5); ALBUMIN/GLOBULIN RATIO 1.3 (1.0-2.2); BILIRUBIN,TOTAL 0.6 mg/dL (0.2-1.0); CALCIUM 9.2 mg/dL (8.5-10.3); CREATININE 1.1 mg/dL (0.4-1.0); TOTAL PROTEIN 7.2 g/dL (6.7-8.2)
--- NOTE | 2019-07-06 07:12 | XRAY Report ---
Reason: Cough for 3 weeks Procedure Date: 07/06/2019 Accession Number: [id number] / [id number] Procedure: XR - Chest 2 View X-Ray CPT Code: 65349 FULL RESULT: EXAM: CHEST RADIOGRAPHY EXAM DATE: 07/06/2019 06:53 AM. CLINICAL HISTORY: Cough for 3 weeks. COMPARISON: None. TECHNIQUE: 2 views. FINDINGS: Lungs/Pleura: No focal opacities evident. No pleural effusion. No pneumothorax. Normal volumes. Mediastinum: Heart and mediastinal contours are unremarkable. Other: None. IMPRESSION: Normal 2-view chest radiography. RADIA
[2019-07-06 07:41] LABS: HCG,QUALITATIVE BLOOD NEGATIVE
== END 2019-07-06 07:42 | disposition home or self-care (01) ==
LOC: ED 06:14
DX: R07.89 Other chest pain (principal); R05 Cough; I45.9 Conduction disorder, unspecified; Z82.49 Family history of ischemic heart disease and other diseases of the circulatory system; I10 Essential (primary) hypertension; D64.9 Anemia, unspecified
CPT/HCPCS: 36415; 71046; 80053; 83690; 84484; 84703; 85025; 93005; 99284

== ENCOUNTER 2020-07-22 08:49 | Emergency (ER) | payer OTHER, MEDICAID ==
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
[2020-07-22 10:09] VITALS: BP 128/88
== END 2020-07-22 10:41 | disposition home or self-care (01) ==
LOC: ED 08:49
DX: S16.1XXA Strain of muscle, fascia and tendon at neck level, initial encounter (principal); S50.02XA Contusion of left elbow, initial encounter; S80.812A Abrasion, left lower leg, initial encounter; S80.811A Abrasion, right lower leg, initial encounter; V47.0XXA Car driver injured in collision with fixed or stationary object in nontraffic accident, initial encounter; Y92.410 Unspecified street and highway as the place of occurrence of the external cause; M50.322 Other cervical disc degeneration at C5-C6 level; I10 Essential (primary) hypertension
CPT/HCPCS: 72125; 99284

== ENCOUNTER 2021-07-30 08:39 | Emergency (ER) | payer MEDICAID ==
[2021-07-30 08:48] VITALS: BP 162/102
--- NOTE | 2021-07-30 09:02 | ED Physician Documentation ---
PD HPI HEENT - Stated complaint Stated Complaint: LT EAR PX - Chief complaint Chief Complaint: Heent - History obtained from History obtained from: Patient - Additional information Additional information: 3 weeks of left ear pain and fullness, was using Cortisporin and started Keflex from a dental infection a few days ago. Pain is better after starting Keflex but hearing is still decreased. 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, 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) HEENT: Tonsil/Adenoidectomy Derm: Skin cancer surgery - Present Medications Home Medications: Ambulatory Orders Medication Instructions Recorded Confirmed Sea Breeze [Sea Breeze Carbonate] 300 mg PO BID 05/25/18 07/30/21 Propranolol [Inderal] 20 mg PO DAILY 05/25/18 07/30/21 traZODone [Desyrel] 50 mg PO DAILY 05/25/18 07/30/21 Ibuprofen [Motrin] 800 mg PO Q8H PRN #30 tablet 07/22/20 07/30/21 Albuterol Sulf [Ventolin Hfa 1 - 2 puffs INH Q4HR PRN #1 inhaler 07/30/21 Inhaler] Cetirizine [ZyrTEC] 10 mg PO DAILY 07/30/21 07/30/21 Neomycin/Polymyx/Hc Otic Drops 4 drops OT TID #1 bottle 07/30/21 [Cortisporin Ear Susp] cephALEXin [Keflex] 1,000 mg PO BID 07/30/21 07/30/21 - Allergies Allergies/Adverse Reactions: Allergies Allergy/AdvReac Type Severity Reaction Status Date / Time will Allergy Anaphylaxis Verified 07/22/20 09:13 - Social History Does the pt smoke?: No Smoking Status: Never smoker Does the pt drink ETOH?: Yes Does the pt have substance abuse?: No - Immunizations Immunizations are current?: No Immunizations: TDAP >10years/unknown - POLST Patient has POLST: No PD ED PE NORMAL - Vitals Vital signs reviewed: Yes - General General: Alert and oriented X 3, No acute distress - HEENT HEENT: Other (Cerumen impaction of the left ear, subsequent to cerumen removal, mild otitis externa but TM normal.) - Neck Neck: Supple, no meningeal sign, No bony TTP - Neuro Neuro: Alert and oriented X 3, Normal speech Results - Vitals Vitals: Vital Signs - 24 hr 07/30/21 08:45 Temperature 36.4 C L Heart Rate 61 Respiratory 16 Rate Blood Pressure 162/102 H O2 Saturation 99 Oxygen O2 Source Room air Procedures - General procedure General procedure: Left ear cerumen was removed with syringe irrigation successfully. PD MEDICAL DECISION MAKING - ED course ED course: She also requested a refill of a inhaler. Departure - Departure Disposition: 01 Home, Self Care Clinical Impression: Otitis externa, Impacted cerumen of left ear Condition: Good Record reviewed to determine appropriate education?: Yes Instructions: ED Otitis Externa Prescriptions: Albuterol Sulf [Ventolin Hfa Inhaler] 1 - 2 puffs INH Q4HR PRN #1 inhaler PRN Reason: Shortness Of Air/Wheezing Neomycin/Polymyx/Hc Otic Drops [Cortisporin Ear Susp] 4 drops OT TID #1 bottle Comments: Prescription sent electronically to [facility] in [place]. Call your doctor to arrange a follow-up appointment, make the next available appointment. In the interim, return anytime if worse or if new symptoms develop.
== END 2021-07-30 09:07 | disposition home or self-care (01) ==
LOC: ED 08:39
DX: H61.22 Impacted cerumen, left ear (principal); H60.92 Unspecified otitis externa, left ear
CPT/HCPCS: 69209; 99282; 99283

== ENCOUNTER 2022-02-03 15:17 | Emergency (ER) | payer MEDICAID ==
[2022-02-03 15:36] VITALS: BP 130/84
--- NOTE | 2022-02-03 16:00 | ED Physician Documentation ---
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 These have not changed over time but there does seem to be more of them she now has some on her anterior thigh and in her belt line. Review of Systems Constitutional: denies: Fever Eyes: denies: Decreased vision Ears: denies: Ear pain Nose: denies: Congestion Throat: denies: Sore throat Respiratory: reports: Cough : denies: Dysuria Skin: reports: Rash Musculoskeletal: denies: Neck pain, Back pain, Extremity pain Neurologic: denies: Generalized weakness, Focal weakness, Numbness PD PAST MEDICAL HISTORY - Past Medical History Past Medical History: Yes Cardiovascular: Hypertension Respiratory: Other Neuro: Migraines Endocrine/Autoimmune: None GI: None CROWN POUNCER: Fibroids : None Psych: Depression, Anxiety, Bipolar disorder Musculoskeletal: None Derm: None - Past Surgical History Past Surgical History: Yes General: Colonoscopy Ortho: Knee replacement, ACL reconstruction, Shoulder arthroplasty /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, 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) HEENT: Tonsil/Adenoidectomy Derm: Skin cancer surgery - Present Medications Home Medications: Ambulatory Orders Medication Instructions Recorded Confirmed Monroe [Monroe Carbonate] 300 mg PO BID 05/25/18 02/03/22 Propranolol [Inderal] 20 mg PO DAILY 05/25/18 02/03/22 Permethrin 5% Cream [Permethrin 30 applic TOP ONCE #60 ml 02/03/22 Cream] - Allergies Allergies/Adverse Reactions: Allergies Allergy/AdvReac Type Severity Reaction Status Date / Time will Allergy Anaphylaxis Verified 07/22/20 09:13 - Social History Does the pt smoke?: No Smoking Status: Never smoker Does the pt drink ETOH?: Yes Does the pt have substance abuse?: No - Immunizations Immunizations are current?: No Immunizations: TDAP >10years/unknown - POLST Patient has POLST: No PD ED PE NORMAL - Vitals Vital signs reviewed: Yes (Hypertensive mild) - General General: Alert and oriented X 3, No acute distress, Well developed/nourished - HEENT HEENT: Atraumatic, PERRL, EOMI - Neck Neck: Supple, no meningeal sign, No bony TTP, No adenopathy, Other (There are small erythematous raised plaques linear and spot like on both sides of the neck. Similar spots are on the anterior thigh and left side and right in the belt line. 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, No motor deficit, No sensory deficit, Normal speech Eye Opening: Spontaneous Motor: Obeys Commands Verbal: Oriented GCS Score: 15 - Psych Psych: Normal mood, Normal affect Results - Vitals Vitals: Vital Signs - 24 hr 02/03/22 15:33 Temperature 98 C H Heart Rate 60 Respiratory 14 Rate Blood Pressure 130/84 H O2 Saturation 98 Oxygen O2 Source Room air PD MEDICAL DECISION MAKING - ED course Complexity details: considered differential, d/w patient ED course: 51-year-old female with a rash that is consistent with scabies history consistent with scabies we will treat with permethrin and patient will follow up with her primary as needed. Departure - Departure Disposition: 01 Home, Self Care Clinical Impression: Scabies Condition: Stable Instructions: ED Scabies Follow-Up: MEAGHAN EASON ARNP [Primary Care Provider] - Prescriptions: Permethrin 5% Cream [Permethrin Cream] 30 applic TOP ONCE #60 ml Comments: Patricia, today it looks like you have scabies and the treatment for it is relatively straightforward. You will need to use some permethrin cream apply it tonight and shower in the morning. You can repeat this treatment if you continue to have symptoms in a week. Follow instructions for cleaning. The prescription has been E scribed to [facility] in [place].
== END 2022-02-03 16:11 | disposition home or self-care (01) ==
LOC: ED 15:17
DX: B86 Scabies (principal); I10 Essential (primary) hypertension
CPT/HCPCS: 99282

== ENCOUNTER 2022-02-10 19:21 | Emergency (ER) | payer MEDICAID ==
[2022-02-10] MEDS ORDERED: PERMETHRIN 5% CREAM 60 GM TUBE TOP ONE (20:47)
--- NOTE | 2022-02-10 21:02 | ED Physician Documentation ---
PD HPI SKIN - Stated complaint Stated Complaint: RASH - Chief complaint Chief Complaint: Allergic Rx - History obtained from History obtained from: Patient - Additional information Additional information: Patient presenting for evaluation of a rash that has been present for 2 weeks. She was seen 1 week agoAnd the rash was felt to be related to scabies. She was given a prescription for permethrin cream. She applied it per the instructions and left on overnight before washing it off. TheRash improved as did her pruritus butIt has since returned and felt worse again. She did not have enough to apply a second treatment and only tried a second of treatment in the areas around her neck.The rash consists of raised spots that are very itchy.They are primarily located to the neck, chest wall, back, upper thigh and anterior abdominal wall.She denies any new exposures. 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 : None Psych: Depression, Anxiety, Bipolar disorder Musculoskeletal: None Derm: None - Past Surgical History Past Surgical History: Yes General: Colonoscopy Ortho: Knee replacement, ACL reconstruction, Shoulder arthroplasty /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: Tubal 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, 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) HEENT: Tonsil/Adenoidectomy Derm: Skin cancer surgery - Present Medications Home Medications: Ambulatory Orders Medication Instructions Recorded Confirmed Webber [Webber Carbonate] 300 mg PO BID 05/25/18 02/03/22 Propranolol [Inderal] 20 mg PO DAILY 05/25/18 02/03/22 Permethrin 5% Cream [Permethrin 30 applic TOP ONCE #60 ml 02/03/22 Cream] Cetirizine [ZyrTEC] 10 mg PO 02/10/22 Permethrin 5% Cream [Permethrin 1 applic TOP ONCE #2 gm 02/10/22 Cream] - Allergies Allergies/Adverse Reactions: Allergies Allergy/AdvReac Type Severity Reaction Status Date / Time will Allergy Anaphylaxis Verified 02/10/22 19:28 - Social History Does the pt smoke?: No Smoking Status: Never smoker Does the pt drink ETOH?: Yes Does the pt have substance abuse?: No - Immunizations Immunizations are current?: No Immunizations: TDAP >10years/unknown - POLST Patient has POLST: No PD ED PE NORMAL - General General: Alert and oriented X 3, No acute distress, Well developed/nourished - HEENT HEENT: Atraumatic, Moist mucous membranes - Neck Neck: Supple, no meningeal sign - Cardiac Cardiac: RRR - Respiratory Respiratory: No respiratory distress, Clear bilaterally - Abdomen Abdomen: Non tender - Derm Derm: Other (Small erythematous raised lesion Primarily to neck, Anterior chest, thoracic back,Beltline. And upper anterior thigh.No fluctuance or lymphangitic Spread) - Extremities Extremities: No edema - Neuro Neuro: No motor deficit, Normal speech - Psych Psych: Normal mood Results - Vitals Vitals: Vital Signs - 24 hr 02/10/22 02/10/22 19:29 21:08 Temperature 36.7 C 36.6 C Heart Rate 70 69 Respiratory 14 15 Rate Blood Pressure 171/89 H 150/81 H O2 Saturation 100 100 Oxygen O2 Source Room air PD MEDICAL DECISION MAKING - ED course ED course: Patient presenting for evaluation of rash. Given the appearance and symptom of pruritus, I also believe that this rash is related to scabies. 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 Departure - Departure Disposition: 01 Home, Self Care Clinical Impression: Scabies Condition: Stable Instructions: ED Scabies Prescriptions: Permethrin 5% Cream [Permethrin Cream] 1 applic TOP ONCE #2 gm Comments: Your rash is concerning for scabies. Unfortunately, you may need to apply a 2nd dose of permethrin 1 week after your first to eliminate all the mites. Massage the cream into all areas of the skin from the neck to the feet. Leave on 8 to 14 hours before washing off. Please follow up with your primary doctor. The itching may last even after the scabies has been successfully treated. You can use benadryl at night to help with the itching. Discharge Date/Time: 02/10/22 21:08
[2022-02-10 21:09] VITALS: BP 150/81
== END 2022-02-10 21:08 | disposition home or self-care (01) ==
LOC: ED 19:21
DX: B86 Scabies (principal)
CPT/HCPCS: 99282

== ENCOUNTER 2023-02-28 19:32 | Emergency (ER) | payer MEDICAID ==
[2023-02-28] MEDS ORDERED: NAPROXEN 250 MG TABLET PO STA (20:45)
--- NOTE | 2023-02-28 20:49 | ED Physician Documentation ---
PD HPI UPPER EXT INJURY - Stated complaint Stated Complaint: RIGHT KNEE PX - Chief complaint Chief Complaint: Ext Problem - History obtained from History obtained from: Patient - Additonal information Additional information: In contrast to the nurses notes she complains to me of ongoing right knee pain for the last month. 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 Anterior knee pain that is unrelenting. NSAIDs have been helpful. She says she had x-rays recently, and would like an MRI. PD PAST MEDICAL HISTORY - Past Medical History Cardiovascular: Hypertension Respiratory: Other Neuro: Migraines Endocrine/Autoimmune: None GI: None CORRECTION WORKER: Fibroids : None Psych: Depression, Anxiety, Bipolar disorder Musculoskeletal: None Derm: None - Past Surgical History Past Surgical History: Yes General: Colonoscopy Ortho: Knee replacement, ACL reconstruction, Shoulder arthroplasty /CORRECTION WORKER: Tubal ligation, 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) HEENT: Tonsil/Adenoidectomy Derm: Skin cancer surgery - Present Medications Home Medications: Ambulatory Orders Medication Instructions Recorded Confirmed [place] [[place] Carbonate] 300 mg PO BID 05/25/18 02/03/22 Propranolol [Inderal] 20 mg PO DAILY 05/25/18 02/03/22 Permethrin 5% Cream [Permethrin 30 applic TOP ONCE #60 ml 02/03/22 Cream] Cetirizine [ZyrTEC] 10 mg PO 02/10/22 Permethrin 5% Cream [Permethrin 1 applic TOP ONCE #2 gm 02/10/22 Cream] Naproxen 500 mg PO BID PRN #30 tab 02/28/23 - Allergies Allergies/Adverse Reactions: Allergies Allergy/AdvReac Type Severity Reaction Status Date / Time will Allergy Anaphylaxis Verified 02/28/23 19:36 - Social History Does the pt smoke?: No Smoking Status: Never smoker Does the pt drink ETOH?: Yes Does the pt have substance abuse?: No - Immunizations Immunizations are current?: No Immunizations: TDAP >10years/unknown - POLST Patient has POLST: No PD ED PE NORMAL - Vitals Vital signs reviewed: Yes - General General: Alert and oriented X 3, No acute distress - Abdomen Abdomen: Normal bowel sounds, Soft, Non tender - Derm Derm: Normal color, Warm and dry - Extremities Extremities: Other (Mild tenderness of the anterior right knee without effusion or deformity. Ligamentous testing is normal but grind testing is positive. No calf tenderness or popliteal tenderness. No calf swelling.) - Neuro Neuro: Alert and oriented X 3, Normal speech Results - Vitals Vitals: Vital Signs - 24 hr 02/28/23 02/28/23 19:36 20:09 Temperature 36.5 C Heart Rate 60 59 L Respiratory 16 18 Rate Blood Pressure 150/84 H 117/76 O2 Saturation 100 97 Oxygen O2 Source Room air PD Medical Decision Making - ED course ED course: She presents with ongoing right knee pain of months duration. Had x-rays, results are unknown. Discussed knee immobilizer and follow-up with orthopedics. Discussed lack of necessity for MRI in the emergency department setting plus it is unavailable at this hour. Departure - Departure Disposition: 01 Home, Self Care Clinical Impression: Right knee pain Qualifiers: Chronicity: acute Qualified Code(s): M25.561 - Pain in right knee Condition: Good Record reviewed to determine appropriate education?: Yes Instructions: ED Knee Pain [facility] Follow-Up: [facility] [Provider Group] Prescriptions: Naproxen 500 mg PO BID PRN #30 tab PRN Reason: pain Comments: Suspect the knee pain is either due to osteoarthritis or meniscus problem based on the acuity and exam. I am not concerned for DVT/blood clot. Follow-up with orthopedics for reevaluation, consideration for MRI and further testing. Return for new or worsening symptoms.
[2023-02-28 20:55] VITALS: BP 109/65
== END 2023-02-28 20:57 | disposition home or self-care (01) ==
LOC: ED 19:32
DX: M25.561 Pain in right knee (principal)
CPT/HCPCS: 99282; 99283; A9270

== ENCOUNTER 2023-04-06 01:10 | Emergency (ER) | payer MEDICAID ==
[2023-04-06 01:46] VITALS: BP 122/94
--- NOTE | 2023-04-06 01:50 | ED Physician Documentation ---
History of Present Illness - Stated complaint Stated Complaint: FOOT PX - Chief complaint Chief Complaint: Trauma Ext - History obtained from History obtained from: Patient - Additonal information Additional information: HPI from patient. Patient c/o bilateral foot pain and swelling, gradual onset and steadily progressive over past several days. Patient has been working a new job starting approximately 1.5 weeks ago, thinks she might not be wearing footwear appropriate to the demands of the job. 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 : None Psych: Depression, Anxiety, Bipolar disorder Musculoskeletal: None Derm: None - Past Surgical History Past Surgical History: Yes General: Colonoscopy Ortho: Knee replacement, ACL reconstruction, Shoulder arthroplasty /BAG BUNDLER: Tubal ligation, 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) HEENT: Tonsil/Adenoidectomy Derm: Skin cancer surgery - Present Medications Home Medications: Ambulatory Orders Medication Instructions Recorded Confirmed [place] [[place] Carbonate] 300 mg PO BID 05/25/18 02/03/22 Propranolol [Inderal] 20 mg PO DAILY 05/25/18 02/03/22 Permethrin 5% Cream [Permethrin 30 applic TOP ONCE #60 ml 02/03/22 Cream] Cetirizine [ZyrTEC] 10 mg PO 02/10/22 Permethrin 5% Cream [Permethrin 1 applic TOP ONCE #2 gm 02/10/22 Cream] Naproxen 500 mg PO BID PRN #30 tab 02/28/23 Diclofenac Sodium 1% Gel [Voltaren 2 gm TOP QID PRN #1 each 04/06/23 Gel] Naproxen 500 mg PO BID PRN #20 tab 04/06/23 Lidocaine Ointment 5% [Xylocaine 1 applic TOP QID PRN #35.44 gm 04/07/23 Ointment 5%] Triamcinolone 0.1% Cream [Kenalog 1 applic TOP BID #15 gm 04/07/23 0.1% Cream] dexAMETHasone [Decadron] 4 mg PO DAILY #5 tablet 04/07/23 - Allergies Allergies/Adverse Reactions: Allergies Allergy/AdvReac Type Severity Reaction Status Date / Time will Allergy Anaphylaxis Verified 04/07/23 16:18 - Social History Does the pt smoke?: No Smoking Status: Never smoker Does the pt drink ETOH?: Yes Does the pt have substance abuse?: No - Immunizations Immunizations are current?: No Immunizations: TDAP >10years/unknown - POLST Patient has POLST: No PD ED PE NORMAL - Vitals Vital signs reviewed: Yes - General General: Alert and oriented X 3, No acute distress, Well developed/nourished PD ED PE EXPANDED - Extremities Extremities: Tenderness Feet visual: 1 - swelling, tenderness 2 - swelling, tenderness Results - Vitals Vitals: Oxygen O2 Source Room air PD Medical Decision Making - ED course Complexity details: considered differential, d/w patient ED course: bilateral foot swelling, erythema without evidence of infection (such as cellulitis). There is a solitary, shallow bulla on right foot, medial aspect. Suspect irritation due to ill-fitting footwear for new job. Needs short period of time off/rest before returning to work Departure - Departure Disposition: 01 Home, Self Care Clinical Impression: Foot pain, bilateral Condition: Good Instructions: Plantar Fasciitis, Plantar Fasciitis Tx Prescriptions: Naproxen 500 mg PO BID PRN #20 tab PRN Reason: Moderate Pain (Level 4-6) Diclofenac Sodium 1% Gel [Voltaren Gel] 2 gm TOP QID PRN #1 each PRN Reason: Mild Pain (Level 1-3) Comments: There is significant inflammation of both feet with evidence of blisters starting to form. This will get worse unless you rest for the next couple of days. Contact your primary care provider when the office opens in the morning to arrange for next available appointment for reevaluation, ideally you should be reevaluated within the next 2 to 3 days. 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 Prescriptions for naproxen (oral anti-inflammatory medication) and topical diclofenac (topical anti-inflammatory) have been electronically submitted to the [facility] pharmacy in [place]. Forms: Activity restrictions Discharge Date/Time: 04/06/23 02:49
== END 2023-04-06 02:49 | disposition home or self-care (01) ==
LOC: ED 01:10
DX: M79.671 Pain in right foot (principal); M79.672 Pain in left foot; R23.8 Other skin changes; I10 Essential (primary) hypertension
CPT/HCPCS: 99281; 99283

== ENCOUNTER 2023-04-07 16:09 | Emergency (ER) | payer MEDICAID ==
--- NOTE | 2023-04-07 16:49 | ED Physician Documentation ---
PD HPI SKIN - Stated complaint Stated Complaint: RASH - Chief complaint Chief Complaint: General - History obtained from History obtained from: Patient - History of Present Illness Timing - onset: Last night Timing - details: Abrupt onset, Still present Location: RUE, LUE, LLE Quality / character: Itchy, Burning, Raised. No: Vesicular Associated symptoms: No: Fever, Myalgias, Facial swelling, Dyspnea, N/V/D Contributing factors: Other (she has [employer] business and her workers were needing help sos he put laundry in with bladder cleaner and some onto arms. 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 : None Psych: Depression, Anxiety, Bipolar disorder Musculoskeletal: None Derm: None - Past Surgical History Past Surgical History: Yes General: Colonoscopy Ortho: Knee replacement, ACL reconstruction, Shoulder arthroplasty /FURNACE COOLER: Tubal ligation, 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) HEENT: Tonsil/Adenoidectomy Derm: Skin cancer surgery - Present Medications Home Medications: Ambulatory Orders Medication Instructions Recorded Confirmed [place] [[place] Carbonate] 300 mg PO BID 05/25/18 02/03/22 Propranolol [Inderal] 20 mg PO DAILY 05/25/18 02/03/22 Permethrin 5% Cream [Permethrin 30 applic TOP ONCE #60 ml 02/03/22 Cream] Cetirizine [ZyrTEC] 10 mg PO 02/10/22 Permethrin 5% Cream [Permethrin 1 applic TOP ONCE #2 gm 02/10/22 Cream] Naproxen 500 mg PO BID PRN #30 tab 02/28/23 Diclofenac Sodium 1% Gel [Voltaren 2 gm TOP QID PRN #1 each 04/06/23 Gel] Naproxen 500 mg PO BID PRN #20 tab 04/06/23 Lidocaine Ointment 5% [Xylocaine 1 applic TOP QID PRN #35.44 gm 04/07/23 Ointment 5%] Triamcinolone 0.1% Cream [Kenalog 1 applic TOP BID #15 gm 04/07/23 0.1% Cream] dexAMETHasone [Decadron] 4 mg PO DAILY #5 tablet 04/07/23 - Allergies Allergies/Adverse Reactions: Allergies Allergy/AdvReac Type Severity Reaction Status Date / Time will Allergy Anaphylaxis Verified 04/07/23 16:18 - Social History Does the pt smoke?: No Smoking Status: Never smoker Does the pt drink ETOH?: Yes Does the pt have substance abuse?: No - Immunizations Immunizations are current?: No Immunizations: TDAP >10years/unknown - POLST Patient has POLST: No PD ED PE NORMAL - Vitals Vital signs reviewed: Yes - General General: Alert and oriented X 3, No acute distress (appears anxious and some uncofrtable due to burning discomfort of the rash. ), Well developed/nourished - HEENT HEENT: Pharynx benign - Neck Neck: Supple, no meningeal sign, No adenopathy - Respiratory Respiratory: No respiratory distress, Clear bilaterally - Derm Derm: Normal color, Warm and dry, Other (both forearms with patches of red based, finely bumpy without vesicles rash that is very tender. It is a swatch across dorsal forearm just below elbow and then to dodrsal radial forearm straight down the arm and not curved like dermatome. Faint patch dorsum right foot. ) - Neuro Neuro: Alert and oriented X 3, No motor deficit, No sensory deficit Results - Vitals Vitals: Vital Signs - 24 hr 04/07/23 04/07/23 16:10 17:35 Temperature 36.5 C Heart Rate 61 65 Respiratory 17 16 Rate Blood Pressure 124/81 H 126/80 O2 Saturation 99 96 Oxygen O2 Source Room air PD Medical Decision Making - ED course Complexity details: considered differential (the abruptness of it and pattern not really dermatomal would speak against shingles, which was pateint concern from online info. It would seem more likely a contact dermatitits from laundry/bladder cleaner contact at work earlier in the day. ), d/w patient Departure - Departure Disposition: 01 Home, Self Care Clinical Impression: Acute maculopapular rash, Contact dermatitis Condition: Stable Record reviewed to determine appropriate education?: Yes Instructions: ED Dermatitis Contact Follow-Up: Carlos Manuel Vega PA-C [Primary Care Provider] - Prescriptions: dexAMETHasone [Decadron] 4 mg PO DAILY #5 tablet Triamcinolone 0.1% Cream [Kenalog 0.1% Cream] 1 applic TOP BID #15 gm Lidocaine Ointment 5% [Xylocaine Ointment 5%] 1 applic TOP QID PRN #35.44 gm PRN Reason: Pain 1-4 Comments: I think this sounds most likely a contact dermatitis given the pattern and location. We can treated with oral steroids as well as a topical steroid for the inflammation. You can use antihistamine such as Zyrtec or cetirizine for itching. Topical lidocaine numbing medicine may be useful as well. This is available [id number] as well. I would anticipate improvement in the next day or 2 and resolved by a few days. I sent your prescription to [facility]. Recheck if not improved well over the next few days or if increased distribution or pattern, or change in character (draining, purulent, etc). Discharge Date/Time: 04/07/23 17:36
[2023-04-07] MEDS ORDERED: DEXAMETHASONE 10 MG/ML VIAL PO STA (17:17)
[2023-04-07] MEDS ORDERED: LIDOCAINE OINTMENT 5% 35.44 GM TUBE TOP STA (17:17)
[2023-04-07] MEDS ORDERED: CETIRIZINE 10 MG TABLET PO STA (17:17)
[2023-04-07] MEDS: CHERRY SYRUP 10 ML UDC PO ONE (17:24)
[2023-04-07 17:36] VITALS: BP 126/80
== END 2023-04-07 17:36 | disposition home or self-care (01) ==
LOC: ED 16:09
DX: L25.9 Unspecified contact dermatitis, unspecified cause (principal)
CPT/HCPCS: 99281; 99282; A9270

== ENCOUNTER 2023-10-02 21:54 | Emergency (ER) | payer MEDICAID ==
[2023-10-02 22:03] VITALS: BP 135/88; O2SAT 100
--- NOTE | 2023-10-02 22:08 | ED Physician Documentation ---
PD HPI UPPER EXT INJURY - Stated complaint Stated Complaint: FACIAL RASH - Chief complaint Chief Complaint: Wound - History obtained from History obtained from: Patient - History of Present Illness Location: Right, Shoulder Type of injury: Other (she had glenoid surgery repair right shoulder about 10 years ago and was told to not do heavy lifting with it. Has a new job starting tomorrow with [employer] and wants doctor note to state she cannot do heavy lifting with the shoulder/arm. Also side noted she has facial rash and requests cream for it.) Associated symptoms: No: Weakness, Numbness Similar symptoms before: Diagnosis (had the shoulder surgery 10 years ago without problems since. 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 : None Psych: Depression, Anxiety, Bipolar disorder Musculoskeletal: None Derm: None - Past Surgical History Past Surgical History: Yes General: Colonoscopy Ortho: Knee replacement, ACL reconstruction, Shoulder arthroplasty /PLASTERER MAINTENANCE: Tubal ligation, 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) HEENT: Tonsil/Adenoidectomy Derm: Skin cancer surgery - Present Medications Home Medications: Ambulatory Orders Medication Instructions Recorded Confirmed [place] [[place] Carbonate] 300 mg PO BID 05/25/18 10/02/23 Propranolol [Inderal] 20 mg PO DAILY 05/25/18 10/02/23 Permethrin 5% Cream 1 applic TOP ONCE #2 gm 02/10/22 10/02/23 Diclofenac Sodium 1% Gel [Voltaren 2 gm TOP QID PRN #1 each 04/06/23 10/02/23 Gel] Clotrimazole/Betamethasone Crm 1 applic TOP BID #45 gm 10/02/23 [Lotrisone Cream] Metronidazole 1% Gel [Metrogel] 2 gm TOP BID #60 gm 10/02/23 - Allergies Allergies/Adverse Reactions: Allergies Allergy/AdvReac Type Severity Reaction Status Date / Time will Allergy Anaphylaxis Verified 10/02/23 22:03 - Social History Does the pt smoke?: No Smoking Status: Never smoker Does the pt drink ETOH?: Yes Does the pt have substance abuse?: No - Immunizations Immunizations are current?: No Immunizations: TDAP >10years/unknown - POLST Patient has POLST: No PD ED PE NORMAL - Vitals Vital signs reviewed: Yes - General General: Alert and oriented X 3, No acute distress, Well developed/nourished - Derm Derm: Normal color, Warm and dry, Other (facial rash with redness and some bumps on nose with redness to both cheeks.) - Extremities Extremities: Other (rigth shoulder with good ROM. ) Results - Vitals Vitals: Oxygen O2 Source Room air PD Medical Decision Making - ED course Complexity details: considered differential (the patient is mainly here for work note, about to start new job at [employer] and she states she was told not to do heavy lifting after a glenoid repair 10 years ago. Also then asked about a facial rash. Has appt with new PCP in Oct.), d/w patient ED course: I would think that her shoulder repair would be healed after a period of time and would have had ongoing restrictions from her Ortho after surgery. She says did not really follow up alf after the repiar. Has gone with the limited lifting restrictions for the past 10 years. [place] Recently to [place]. Has appt with new PCP in Oct. I reluctantly gave pt work not for limited use of right shoulder/arm, for short term until follow up with new PCP and to establish with Ortho here. I told pt I cannot really attest to her need for limited function without prior records nor a better ortho opinion, but can go with her word on it for the short term. Also has recurring facial christ nose and cheeks that has been treated with "some cream" in the past. Aking for cream script for it. She does not recall what it was previously. Appearance of the rash to me appears c/w rosacea. Departure - Departure Disposition: 01 Home, Self Care Clinical Impression: Facial rash, Status post repair of glenoid labrum Condition: Stable Record reviewed to determine appropriate education?: Yes Follow-Up: Carlos Manuel Vega PA-C [Primary Care Provider] - [facility] [Provider Group] [facility] [Provider Group] Prescriptions: Clotrimazole/Betamethasone Crm [Lotrisone Cream] 1 applic TOP BID #45 gm Metronidazole 1% Gel [Metrogel] 2 gm TOP BID #60 gm Comments: I provided a note for limited lifting with your shoulder until seen by primary care next month or Ortho. Regarding her facial rash, I would try the metronidazole gel twice daily for the next week or so. I think that will be helpful. You could also additionally use the Lotrisone cream which is mild steroid with an antifungal. I would not do the steroid for more than 5 to 7 days at a time. I sent your prescriptions to your preferred pharmacy. Follow-up with your primary care next month as planned. You could also follow- up more specifically with orthopedics for your shoulder and dermatology for your facial rash. Forms: PCP List, Activity restrictions Discharge Date/Time: 10/02/23 22:50
== END 2023-10-02 22:50 | disposition home or self-care (01) ==
LOC: ED 21:54
DX: R21 Rash and other nonspecific skin eruption (principal); I10 Essential (primary) hypertension; Z79.899 Other long term (current) drug therapy
CPT/HCPCS: 99282; 99283

== ENCOUNTER 2023-12-14 06:48 | Emergency (ER) | payer MEDICAID ==
--- NOTE | 2023-12-14 07:36 | ED Physician Documentation ---
PD HPI SKIN - Stated complaint Stated Complaint: FACE RASH,SWELLING - Chief complaint Chief Complaint: Wound - History obtained from History obtained from: Patient - Additional information Additional information: Patient is a 52-year-old female presenting for evaluation of a rash that has been present to her face she states for years. She states at times though the rash does worsen. She reports in the last few weeks she has noticed increased redness and bumps around the left nose and left cheek area. No abnormal drainage. She reports seeing a parish nurse 2 to 3 years ago in [place] but felt dismissed by the parish nurse who told her that it was only related to nasal drip. She reports recently being in a hot tub. Denies rash elsewhere. No fevers.She reports being told she had a MRSA infection 15 years ago when she lived in [place]. 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 : None Psych: Depression, Anxiety, Bipolar disorder Musculoskeletal: None Derm: None - Past Surgical History Past Surgical History: Yes General: Colonoscopy Ortho: Knee replacement, ACL reconstruction, Shoulder arthroplasty /MANIFOLD OPERATOR: Tubal ligation, 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) HEENT: Tonsil/Adenoidectomy Derm: Skin cancer surgery - Present Medications Home Medications: Ambulatory Orders Medication Instructions Recorded Confirmed [place] [[place] Carbonate] 300 mg PO BID 05/25/18 10/02/23 Propranolol [Inderal] 20 mg PO DAILY 05/25/18 10/02/23 Permethrin 5% Cream 1 applic TOP ONCE #2 gm 02/10/22 10/02/23 Diclofenac Sodium 1% Gel [Voltaren 2 gm TOP QID PRN #1 each 04/06/23 10/02/23 Gel] Clotrimazole/Betamethasone Crm 1 applic TOP BID #45 gm 10/02/23 [Lotrisone Cream] Metronidazole 1% Gel [Metrogel] 2 gm TOP BID #60 gm 10/02/23 Doxycycline Hyclate 100 mg PO BID #14 tab 12/14/23 - Allergies Allergies/Adverse Reactions: Allergies Allergy/AdvReac Type Severity Reaction Status Date / Time will Allergy Anaphylaxis Verified 12/14/23 07:03 - Social History Does the pt smoke?: No Smoking Status: Never smoker Does the pt drink ETOH?: Yes Does the pt have substance abuse?: No - Immunizations Immunizations are current?: No Immunizations: TDAP >10years/unknown - POLST Patient has POLST: No PD ED PE NORMAL - General General: Alert and oriented X 3, No acute distress, Well developed/nourished - HEENT HEENT: Atraumatic, Moist mucous membranes, Pharynx benign - Neck Neck: Supple, no meningeal sign - Cardiac Cardiac: RRR, No murmur - Respiratory Respiratory: No respiratory distress, Clear bilaterally - Derm Derm: Other (papular rash to bilateral nasal ala With some spread over left dutch ek, no fluctuance to suggest abscess,) Results - Vitals Vitals: Vital Signs - 24 hr 12/14/23 07:01 Temperature 36.4 C L Heart Rate 73 Respiratory 20 Rate Blood Pressure 153/104 H O2 Saturation 99 Oxygen O2 Source Room air PD Medical Decision Making - ED course ED course: Patient with a rash to her face which has been present for years but has recently noticed some worsening over the past 2 weeks. Does have areas of raised erythema/Papular Over the nasal domitila and also to the left cheek. Patient is otherwise well-appearing, nontoxic, no fluctuance or signs of soft tissue swelling to suggest abscess.Discussed possible etiologies of the rash which could include infection. Given history of MRSA we will trial a course of doxycycline and recommend close follow-up with PCP. Patient is advised on concerning symptoms to return for. Departure - Departure Disposition: 01 Home, Self Care Clinical Impression: Facial rash Condition: Stable Instructions: ED Dermatitis Non Specific Rash Prescriptions: Doxycycline Hyclate 100 mg PO BID #14 tab Comments: You were evaluated for a rash to your face. At this time I do not see signs of an abscess which is a large collection of pus that requires drainage with an incision. However your rash could be related to an infection so I am placing you on a course of antibiotics. I would recommend close follow-up with your primary care provider for close follow-up and that you would likely benefit from another referral to dermatology given how long your rash has been present. I have sent your prescription to [facility] in [place]. Please use only gentle cleansers on your face without fragrance or anything else that could be irritating. Forms: PCP List Discharge Date/Time: 12/14/23 07:54
[2023-12-15 07:37] VITALS: BP 153/104; O2SAT 99
== END 2023-12-14 07:54 | disposition home or self-care (01) ==
LOC: ED 06:48
DX: R21 Rash and other nonspecific skin eruption (principal); I10 Essential (primary) hypertension
CPT/HCPCS: 99282; 99283